=== PATIENT | male | born 1970 | race Two or more races ===

== ENCOUNTER 2024-12-22 16:54 | Emergency (ER) | payer SELFPAY ==
[2024-12-22 17:00] VITALS: BP 156/117; PULSE 100; RESP 19; TEMP 36.8; O2SAT 96; BMI 32.8
--- NOTE | 2024-12-22 17:43 | XR_ITS ---
Examination: PA chest single view Technique 1 upright PA chest single view. Examination time: December 22, 2024, 1756 hours INDICATIONS: Suggest pain today. FINDINGS: Minimal prominence left ventricle. No pneumonia or pulmonary edema. The osseous structures are intact This film does not include the apices IMPRESSION: Limited technique No pneumonia or pulmonary edema
--- NOTE | 2024-12-22 17:43 | EKG_ITS ---
[facility] Test Date: 2024-12-22 Pat Name: ANTOLIN JANE Department: Room: - Gender: Male Cafe Aide: : 1970 Requested By: Chun Wells Order Number: [id number] Reading MD: Chun Wells Measurements Intervals [place] Rate: 84 P: -5 NM: 160 QRS: -1 QRSD: 87 T: 31 QT: 369 QTc: 438 Interpretive Statements SINUS RHYTHM ANTEROSEPTAL MYOCARDIAL INFARCTION , PROBABLY OLD [40+ ms Q WAVE IN V1-V4] No previous ECG available for comparison /[id number]/[id number]
--- NOTE | 2024-12-22 17:43 | EDNOTE_ITS ---
ED Chest Pain RME/HPI General Chief Complaint: Medical Clearance Stated Complaint: [facility] CLEARANCE Time Seen by Provider: 12/22/24 17:41 Source: patient, RN notes reviewed, old records reviewed and police Arrival date/time: 12/22/24 16:54 Mode of arrival: ambulatory Limitations: no limitations RME / HPI RME / HPI narrative: 54yom presents to ED via [employer] for medical clearance. Patient reports chest pain and dizziness that initiated today while being arrested. Reports history of HTN, CAD and UT approximately 1 year ago. No shortness of breath, nausea/vomiting, h eadache or syncope reported. 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 Review of Systems Review of Systems Systems Reviewed: All systems reviewed, normal except as documented ENT Ears, Nose, Mouth, and Throat: Reports vertigo Cardiovascular Cardiovascular: Reports chest pain, Denies dyspnea and Denies syncope Respiratory Respiratory: Denies dyspnea Gastrointestinal Gastrointestinal: Denies nausea and Denies vomiting Neurologic Neurologic: Denies syncope and Reports vertigo Past Medical History Past Medical History CARDIAC: Positive Myocardial Infarction, Coronary Artery Disease and Hypertension Surgical History OTHER SURGICAL HX: Cardiac stents Social History SMOKING STATUS: Never smoker SUBSTANCE USE: does not use ALCOHOL: Current (Social) ED Exam General Limitations: Present no limitations General appearance: Present alert and in no apparent distress Head Head exam: Present atraumatic and normocephalic Eye Eye exam: Present normal appearance, PERRL and EOMI ENT ENT exam: Present normal exam and mucous membranes moist Neck Neck exam: Present normal inspection and full ROM Chest Chest inspection: Present normal inspection and symmetric chest wall rise Respiratory Respiratory exam: Present normal lung sounds bilaterally; Absent respiratory distress Cardiovascular Cardiovascular exam: Present regular rate and normal rhythm Extremities Exam Extremities exam: Present normal inspection and full ROM Back Exam Back exam: Present normal inspection and full ROM; Absent tenderness Neurological Exam Neurological exam: Present alert and oriented X3 Psychiatric Psychiatric exam: Present normal affect and normal mood Skin Skin exam: Present warm, dry and intact Course Quality Measures none Orders Category Date Time Status EKG (ED ONLY) *Do not use* NOW Care 12/22/24 17:43 Completed CXR [XR chest 1V] Stat Exams 12/22/24 17:43 Completed EKG (ED Only) Stat Exams 12/22/24 17:43 Draft BNP [B-Type Natriuretic Peptide] Stat Lab 12/22/24 17:53 Completed CBC Stat Lab 12/22/24 17:53 Completed CMP [Comprehensive Metabolic Panel] Stat Lab 12/22/24 17:53 Completed Troponin I Stat Lab 12/22/24 17:53 Completed Troponin I Stat Lab 12/22/24 20:30 Completed Vital Signs Vital signs: Vital Signs Temperature 98.2 F 12/22/24 17:00 Pulse Rate 100 12/22/24 17:00 Respiratory Rate 19 12/22/24 17:00 Blood Pressure 156/117 H 12/22/24 17:00 Pulse Oximetry (%) 96 12/22/24 17:00 Oxygen Delivery Method Room Air 12/22/24 17:00 Procedures -ED EKG Interpretation #1: Date of EK12/22/24 Rate: 84 Interpretation: Interpreted by me EKG Impression: Normal sinus rhythm, No acute ST-T changes, No ectopy, No ischemic changes, Normal QRS, Normal intervals and Normal axis Chest Pain MDM Narrative MDM Narrative:: 54yom presents to ED via [employer] for medical clearance. Patient reports chest pain and dizziness that initiated today while being arrested. Reports history of HTN, CAD and UT approximately 1 year ago. No shortness of breath, nausea/vomiting, headache or syncope reported. 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 ED workup reassuring. Patient medically cleared for penitentiary. Patient data External records reviewed:: None (No prior visits) Clinical information provided by:: patient and law enforcement Social determinants that could affect healthcare access:: other (specify) (Poor access to healthcare) Patient has the following chronic illnesses:: CAD, HTN, UT How is presenting disease/condition affected by chronic disease/condition?: exacerbated by Evaluation data The following diagnostics were reviewed and interpreted by me:: lab results, radiology exam(s) and EKG tracing(s) Lab and/or radiology exams considered but not ordered:: None Interpretation Summary: CXR: No acute process per my read EKG normal sinus Negative trops x2 Medications / Prescriptions Medications or Prescriptions considered but not ordered:: No antibiotics recommended at this time Medication administrations:: None Consultations Consultation(s) initiated? (list below): No Diagnosis Chest Pain Differential Diagnosis: other (Chest pain, angina, UT, costochondritis, anxiety, pneumothorax) Most likely diagnosis given after review of the tests above:: Chest pain Admission Indicated Admission indicated?: not indicated Admission Request Was there a request for admission?: No Disposition Plan Disposition Plan: Discharge Discharge Attestation Discharge Attestation: The patient and all family members were given an opportunity to ask questions and understood the discharge instructions. Discharge instructions specifically effects, indications for sooner follow up or return to the emergency department, and the expected course of current diagnosis. Patient condition: Stable Discharge Plan Plan Patient Disposition: Longterm/Court/Law Patient condition on transfer: Stable Prescriptions/Referrals Referrals: No Primary/Family,Physician [Primary Care Provider] - In 1 week Problem List Clinical Impression: Chest pain, Dizziness Patient/Caregiver Discharge Instructions Education Materials: ED Chest Pain, Uncertain Cause Print Language: [place] Irish PA/SALARY MANAGER Supervising Physician PA/SALARY MANAGER Supervising Physician: Elvira
[2024-12-22 18:07] LABS: Basophils # (Auto) 0.1 Thou/mm3 (0.0-0.2); Basophils % (Auto) 0 % (0-2.5); Eosinophils % (Auto) 0 % (0-10); Hematocrit 49.5 % (41.0-53.0); Hemoglobin 17.1 g/dL (13.5-16.0); Immature Granulocytes % (Auto) 0 % (0-0); Immature Granulocytes Auto 0.04 Thou/mm3 (0.00-0.00); Lymphocytes # (Auto) 1.6 Thou/mm3 (1.0-4.8); Lymphocytes % (Auto) 13 % (10-50); Mean Corpuscular HGB Conc 34.5 g/dl (31.0-37.0); Mean Corpuscular Volume 90 fL (80-100); Monocytes # (Auto) 0.8 Thou/mm3 (0.0-0.8); Monocytes % (Auto) 6 % (0-12); Neutrophils # (Auto) 9.4 Thou/mm3 (1.8-7.7); Neutrophils % (Auto) 79 % (37-80); Nucleated Red Blood Cell % 0 /100 WBC (0); Platelet Count 275 Thou/mm3 (140-440); RDW Standard Deviation 45.1 fL (35.1-43.9); Red Blood Count 5.51 Miln/mm3 (4.50-5.90); White Blood Count 11.8 Thou/mm3 (3.8-10.6)
[2024-12-22 18:59] LABS: Alanine Aminotransferase 31 U/L (10-49); Albumin, Serum 4.2 gm/dL (3.5-5.0); Albumin/Globulin Ratio 1.5 (1.2-2.2); Alkaline Phosphatase 93 U/L (46-116); Anion Gap 7 (7-16); Aspartate Amino Transferase 23 U/L (0-34); BUN/Creatinine Ratio 11 Ratio (12-20); Bilirubin,Total 0.8 mg/dL (0.3-1.2); Blood Urea Nitrogen 15 mg/dL (9-23); Calcium 9.3 mg/dL (8.3-10.6); Calcium (Corrected) 9.3 mg/dL (8.5-10.1); Carbon Dioxide 22.9 mMol/L (20.0-31.0); Chloride 107 mMol/L (98-107); Creatinine (Component) 1.4 mg/dL (0.6-1.3); Estimated Creatinine Clearance 77.2 mL/min (>60); Globulin 2.8 gm/dL (2.3-3.5); Glucose 135 mg/dL (74-106); Osmolality,Calculated 276 (275-295); Potassium 4.1 mMol/L (3.4-5.1); Sodium 137 mMol/L (136-145); Troponin I < 0.020 ng/mL (0.0-0.045); eGFR 60 See Note
[2024-12-22 19:02] LABS: B-Type Natriuretic Peptide < 20 pg/mL (0-100)
[2024-12-22 21:48] LABS: Troponin I < 0.020 ng/mL (0.0-0.045)
[2024-12-22 22:11] VITALS: BP 157/108; PULSE 90; RESP 20; TEMP 36.3; O2SAT 94
[2024-12-22 22:24] VITALS: PULSE 90; RESP 20; TEMP 36.3; O2SAT 94
== END 2024-12-22 22:26 ==
PROVIDERS: Physician Assistant; Emergency Provider Emergency Medicine
DX: Z02.89 Encounter for other administrative examinations (principal); I10 Essential (primary) hypertension; I25.10 Atherosclerotic heart disease of native coronary artery without angina pectoris; I25.2 Old myocardial infarction; R07.9 Chest pain, unspecified; R42 Dizziness and giddiness
CPT/HCPCS: 36415; 71045; 80053; 83880; 84484; 85025; 93005; 99283